=== PATIENT | male | born 1970 | race Caucasian/White ===

== ENCOUNTER 2024-12-11 07:22 | Emergency (ER) | payer OTHER ==
[~2024-12-11] VITALS: Ht 180.3 cm; Wt 117.3 kg
--- NOTE | 2024-12-11 08:13 | RADIOLOGY REPORT ---
EXAM: XR Left Ankle Complete, 3 or More Views CLINICAL INDICATION: ANKLE PAIN TECHNIQUE: Frontal, lateral and oblique views of the left ankle. COMPARISON: None FINDINGS: BONES/JOINTS: Status post fixation of the distal tibia to the talus. Intact hardware. Satisfactory position. Secondary posttraumatic severe degenerative change of the ankle joints. No acute fractur e. No dislocation. SOFT TISSUES: Soft tissue swelling. OTHER FINDINGS: . IMPRESSION: Postoperative changes as above.
--- NOTE | 2024-12-11 08:51 | Physician Documentation ---
History of Present Illness ~ Chief Complaint: Ankle pain Stated Complaint: LEG PAIN Time Seen by MD: 08:49 HPI 54-year-old male presenting with acute onset left lower leg pain. Patient states that the pain started yesterday in the evening and has been ongoing since. He states that this morning when he got up and tried to apply some weight to the left lower extremity he had very severe sharp pain especially in the back of his ankle that radiated up his calf. States that last night he took two Percocets as well as meloxicam and still could not sleep properly due to the pain. Denies any recent trauma. Denies any other associated symptoms. The pat lino does have a history of left ankle surgery with hardware placement done about 10 years ago. He states that they fused his ankle together. He had a similar surgery done on his right ankle but he has no pain on the right. Tetanus witin 5 years: No Medication Reconciliation Allergies: Coded Allergies: No Known Allergies (Unverified , 12/11/24) Physical Exam Vital Signs: Temperature: 98.0, Source: Oral, Heart Rate: 97, Respiratory Rate: 18, BP: 175/95, Pulse Oximetry: 95, Weight: 117.300 Physical Exam I have reviewed the triage vitals. CONST: Well developed and well nourished. In no acute distress HENT: Head Atraumatic EYES: Pupils are equal, round and reactive to light. Normal conjunctiva NECK: Normal range of motion. Supple. CARDIO: Normal rate and regular rhythm. No murmurs, rubs, or gallops. S1, S2. PULM/CHEST: No respiratory distress. Lungs clear to auscultation. No wheeze ABD: Soft and nontender. Nondistended. Bowel sounds normal. No guarding. : Exam deferred MSK: Left ankle with slight effusion. Range of motion is limited secondary to prior ankle fusion surgery. Attempts at range of motion causes significant pain. There is tenderness to palpation over the lateral ankle mainly over the fibula superior to the lateral malleolus. Achilles tendon is intact. NEURO: Alert and oriented to person, place and time. Moving all extremities SKIN: Warm and dry. PSYCH: Normal mood and affect. Good eye contact. Progress Results/Orders Results/Orders Orders - MIKE KWONG MD Ankle, Complete(3vw Min) (12/11/24 07:35) Vl Venous (12/11/24 09:09) Ct Lower Extremity (12/11/24 ) Culture Blood (12/11/24 11:11) Completed Orders - MIKE KWONG MD Ankle, Complete(3vw Min) (12/11/24 07:35) Ondansetron Inj. (Zofran 4mg/2ml Vial) (12/11/24 09:10) Morphine 4mg/Ml Inj. (Morphine Inj.) (12/11/24 09:10) Vl Venous (12/11/24 09:09) Electrocardiogram (12/11/24 09:13) Cbc/Diff (12/11/24 09:13) CMP (12/11/24 09:13) Ct Lower Extremity (12/11/24 ) Procalcitonin (12/11/24 11:11) Lacticsepsis (12/11/24 11:11) C-Reactive Protein (12/11/24 11:37) ESR (12/11/24 11:37) Uric Acid (12/11/24 11:37) Dexamethasone Inj (Decadron 10mg/Ml Inj) (12/11/24 12:20) Medications Received in ER Medications (Trade) Dose Ordered Sig/Isamar Route PRN Reason Start Time Stop Time Status Last Admin Dose Admin (Zofran 4mg/2ml vial) 4 mg ONCE ONCE IV 12/11/24 09:10 12/11/24 09:11 DC 12/11/24 09:27 4 MG (morphine inj.) 4 mg ONCE ONCE IV 12/11/24 09:10 12/11/24 09:11 DC 12/11/24 09:27 4 MG (Decadron 10mg/ ml inj) 10 mg ONCE STAT IV 12/11/24 12:20 12/11/24 12:21 DC 12/11/24 13:00 10 MG Vital Signs 12/11/24 12/11/24 12/11/24 12/11/24 07:29 09:27 09:29 10:05 Temp 98.0 Pulse 97 69 Resp 18 14 16 16 B/P (MAP) 175/95 143/70 (94) Pulse Ox 95 99 O2 Flow Rate 0 12/11/24 12/11/24 11:36 13:00 Pulse 80 74 Resp 16 16 B/P (MAP) 145/77 (99) 118/66 (83) Pulse Ox 99 99 O2 Flow Rate 0 0 Laboratory Tests Test 12/11/24 09:24 12/11/24 11:39 White Blood Count 14.7 H Red Blood Count 4.70 Hemoglobin 14.5 Hematocrit 42.2 Mean Corpuscular Volume 89.7 Mean Corpuscular Hemoglobin 30.8 Mean Corpuscular Hemoglobin Concent 34.3 Red Cell Distribution Width 14.1 Platelet Count 296 Mean Platelet Volume 8.2 Neutrophils (%) (Auto) 70.1 Lymphocytes (%) (Auto) 17.7 L Monocytes (%) (Auto) 9.4 Eosinophils (%) (Auto) 2.1 Basophils (%) (Auto) 0.7 Neutrophils # (Auto) 10.3 H Lymphocytes # (Auto) 2.6 Monocytes # (Auto) 1.4 H Eosinophils # (Auto) 0.3 Basophils # (Auto) 0.1 CBC Comment Erythrocyte Sedimentation Rate 14 Sodium Level 138 Potassium Level 4.2 Chloride Level 103 Carbon Dioxide Level 25.0 Anion Gap 10 Blood Urea Nitrogen 19 H Creatinine 1.10 Estimated GFR/1.73 m2 70 BUN/Creatinine Ratio 17.3 Glucose Level 118 H Calcium Level 9.5 Total Bilirubin 0.4 Aspartate Amino Transf (AST/SGOT) 26 Alanine Aminotransferase (ALT/SGPT) 52 Alkaline Phosphatase 138 H Total Protein 7.6 Albumin 4.1 Globulin 3.5 Albumin/Globulin Ratio 1.2 Chemistry Comments Lactic Acid Level 0.9 Uric Acid 6.6 C-Reactive Protein 1.34 H Procalcitonin < 0.05 EKG/XRAY/CT/US/VASC/MRI Bone/Soft Tissue X-Ray (Ext.) : Additional Comment EXAM: XR Left Ankle Complete, 3 or More Views CLINICAL INDICATION: ANKLE PAIN TECHNIQUE: Frontal, lateral and oblique views of the left ankle. COMPARISON: None FINDINGS: BONES/JOINTS: Status post fixation of the distal tibia to the talus. Intact hardware. Satisfactory position. Secondary posttraumatic severe degenerative change of the ankle joints. No acute fracture. No dislocation. SOFT TISSUES: Soft tissue swelling. OTHER FINDINGS: . IMPRESSION: Postoperative changes as above. Vascular : Impression VASC VL VENOUS HISTORY: COMPARISON: None TECHNIQUE: Duplex doppler evaluation of the deep venous system of the lower extremity from the common femoral veins, superficial femoral vein, great saphenous vein, deep femoral vein, popliteal vein, and calf veins, including color doppler and spectral/pulsed waveform analysis, was performed. FINDINGS: Right: - Common femoral vein: Compressible Left: - Common femoral vein: Compressible - Deep femoral vein: Compressible - Femoral vein: Compressible - Popliteal vein: Compressible - Posterior tibial vein: Waveforms present - Peroneal vein: Waveforms present - Other: Nothing IMPRESSION: No left lower extremity deep venous thrombosis. Medical Decision Making Additional Comment 54-year-old male presenting with left ankle pain. X-ray and CT of the extremity show no fracture or displacement of his known surgical hardware. We also did an ultrasound which was negative for DVT. Patient does have a slightly elevated WBC count as well as an elevated CRP. There are no other signs or indications of any trauma. I suspect the patient may be suffering from potential inflammatory arthritis possibly gout versus pseudogout versus other etiology. I did check a uric acid level which was normal. Patient was medicated with 4 mg of IV morphine and 4 mg of IV Zofran. Also given 10 mg IV Decadron. His symptoms were improved. At this point in time I will discharge him with a prescription for Medrol Dosepak. He was advised to continue with his Percocet as needed for breakthrough pain. Also advised him that he can take ibuprofen 600-800 mg as needed for breakthrough pain. Advised to follow up closely with his primary care physician for workup of potential gout. Return to the ED with any acutely worsening symptoms. Departure Disposition: 01 HOME / SELF CARE / HOMELESS Impression: Primary Impression: Inflammatory arthritis Condition: Improved Discharge Instructions: Gout Additional Instructions: Take medication as prescribed. Ice and elevate affected extremity. Continue with ibuprofen and Percocet as needed. Follow up closely with the primary care physician in the next 2-3 days. You could potentially have gout however this needs to be worked up further with analysis of joint fluid. In the meantime take the medication as prescribed and monitor for improvement. Return to the ED with any acutely worsening symptoms. Referrals: NO PRIMARY CARE PROVIDER (PCP) Prescriptions Methylprednisolone (Medrol Dosepak) 4 Mg Tab.ds.pk 0 PO UD, #21 TAB 0 Refills take 6 Pills Day 1, 5 Pills Day 2, 4 Pills Day 3, 3 Pills Day 4, 2 Pills Day 5 and 1 pill Day 6 Prov: MIKE KWONG MD 12/11/24 Signature Scribe Signature: 1 Attestation: 1 MIKE KWONG MD Dec 11, 2024 08:51
--- NOTE | 2024-12-11 09:18 | ELECTROCARDIOGRAPH REPORT ---
[facility] Test Date: 2024-12-11 Test Time: 09:16:04 Pat Name: IONA GALEANO Department: [facility] Patient ID: [id number] Room: Gender: M Clinical Application Manager: : 1970 Requested By: MIKE KWONG Order Number: [id number] Reading MD: Measurements Intervals [place] Rate: 68 P: 93 IN: 172 QRS: 108 QRSD: 160 T: 50 QT: 441 QTc: 470 Interpretive Statements Sinus rhythm RBBB and LPFB Baseline wander in lead(s) V3 Please click the below link to view image of tracing.
[2024-12-11] MEDS: ondansetron/PF 4mg/2ml inj IV ONE (09:27)
[2024-12-11] MEDS: morphine 4 MG/ML inj SYRINge IV ONE (09:27)
[2024-12-11 09:39] LABS: BASOPHILS # (AUTO) 0.1 X10'3 (0-0.2); BASOPHILS % (AUTO) 0.7 % (0-1); EOSINOPHILS # (AUTO) 0.3 X10'3 (0-0.9); EOSINOPHILS % (AUTO) 2.1 % (0-6); HEMATOCRIT 42.2 % (42.0-52.0); HEMOGLOBIN 14.5 g/dl (14.0-17.9); LYMPHOCYTES # (AUTO) 2.6 X10'3 (1.1-4.8); LYMPHOCYTES % (AUTO) 17.7 % (21-51); MEAN CORPUSCULAR HEMOGLOBIN 30.8 PG (27.0-31.0); MEAN CORPUSCULAR HGB CONC 34.3 g/dL (33.0-36.5); MEAN CORPUSCULAR VOLUME 89.7 FL (78-98); MEAN PLATELET VOLUME 8.2 FL (7.4-10.4); MONOCYTES # (AUTO) 1.4 X10'3 (0-0.9); MONOCYTES % (AUTO) 9.4 % (2-12); NEUTROPHILS # (AUTO) 10.3 X10'3 (1.8-7.7); NEUTROPHILS % (AUTO) 70.1 % (42-75); PLATELET COUNT 296 X10'3 (140-440); RED CELL DISTRIBUTION WIDTH 14.1 % (11.5-14.5); WHITE BLOOD COUNT 14.7 X10'3 (4.5-11.0)
[2024-12-11 09:59] LABS: ALANINE AMINOTRANSFERASE 52 U/L (12-78); ALBUMIN 4.1 G/DL (3.4-5.0); ALBUMIN/GLOBULIN RATIO 1.2 (1.1-1.5); ALKALINE PHOSPHATASE 138 IU/L (46-116); ANION GAP 10 (8-16); ASPARTATE AMINO TRANSFERASE 26 U/L (10-37); BILIRUBIN,TOTAL 0.4 MG/DL (0.1-1.0); BLOOD UREA NITROGEN 19 MG/DL (7-18); BUN/CREATININE RATIO 17.3 (10.0-20.0); CALCIUM 9.5 MG/DL (8.5-10.1); CHLORIDE 103 MMOL/L (99-107); GLUCOSE 118 MG/DL (70-104); POTASSIUM 4.2 MMOL/L (3.5-5.1); SODIUM 138 MMOL/L (135-145); TOTAL PROTEIN 7.6 G/DL (6.4-8.2); eCRCL 82 ML/MIN; eGFR 70 ML/MIN
--- NOTE | 2024-12-11 10:38 | VASCULAR REPORT ---
VASC VL VENOUS HISTORY: COMPARISON: None TECHNIQUE: Duplex doppler evaluation of the deep venous system of the lower extremity from the common femoral veins, superficial femoral vein, great saphenous vein, deep femoral vein, popliteal vein, an d calf veins, including color doppler and spectral/pulsed waveform analysis, was performed. FINDINGS: Right: - Common femoral vein: Compressible Left: - Common femoral vein: Compressible - Deep femoral vein: Compressible - Femoral vein: Compressible - Popliteal vein: Compressible - Posterior tibial vein: Waveforms present - Peroneal vein: Waveforms present - Other: Nothing IMPRESSION: No left lower extremity deep venous thrombosis.
--- NOTE | 2024-12-11 11:20 | RADIOLOGY REPORT ---
INDICATION: LEFT ankle pain- r/o occult fracture and displacement of hardw. COMPARISON: None TECHNIQUE: CT of the left ankle was performed without contrast. Volume transverse images were obtaine d and reconstructed in multiple planes using bone and soft tissue algorithms. Radiation Dose Information: CT Dose: CTDI volume is 14.4 mGy. Dose-length product is 272 mGy*cm FINDINGS: There is no fracture, dislocation or aggressive osseous lesion. Surgical fixation hardware is seen in the distal tibia which extends to the talus and is also abuttin g the distal fibula. No gross evidence of hardware complication. Severe degenerative arthrosis is seen throughout the ankle joints. There is no joint effusion. The soft tissues are normal. IMPRESSION: 1. No acute fracture or dislocation. 2. Surgical fixation hardware is seen throughout the ankle without gross evidence of hardware complic ation. 3. Severe degenerative arthrosis is seen throughout the ankle joints. All CT scans at this medical facility are performed using dose modulation techniques as appropriate t o a performed exam including the following: Automated exposure control was utilized; adjustment of th e MA and/or KV according to patient size; and use of iterative reconstruction technique.
[2024-12-11 12:32] LABS: C-REACTIVE PROTEIN 1.34 MG/DL (0.0-0.5)
[2024-12-11 12:38] LABS: URIC ACID 6.6 MG/DL (3.5-7.2)
[2024-12-11] MEDS: dexamethasone sod phosphate 10mg/ml inj IV STA (13:00)
[2024-12-11] MEDS ORDERED: METH4TAB81 PO (13:46)
[2024-12-11 13:59] VITALS: BP 118/66; PULSE 83; RESP 16; TEMP 98; O2SAT 94
== END 2024-12-11 14:01 | disposition home or self-care (01) ==
LOC: ER 07:23
DX: M06.4 Inflammatory polyarthropathy (principal)
CPT/HCPCS: 36415; 73610; 73700; 80053; 83605; 84145; 84550; 85025; 85651; 86140; 87040; 93005; 93971; 96374; 96375; 99285; J1100; J2270; J2405